=== PATIENT | female | born 1945 | race Caucasian/White ===

== ENCOUNTER 2016-06-21 08:00 | Outpatient (CLI) | payer MEDICARE, OTHER | END 2016-06-21 08:01 | disposition home or self-care (01) | DX: Z79.899 Other long term (current) drug therapy (principal); N95.1 Menopausal and female climacteric states; E55.9 Vitamin D deficiency, unspecified; I31.9 Disease of pericardium, unspecified ==

== ENCOUNTER 2016-07-24 09:18 | Outpatient (CLI) | payer MEDICARE, OTHER | END 2016-07-24 09:19 | disposition home or self-care (01) | DX: K86.2 Cyst of pancreas (principal) ==

== ENCOUNTER 2016-07-27 08:17 | Outpatient (CLI) | payer MEDICARE, OTHER ==
[2016-07-27] MEDS ORDERED: IOPAMIDOL-300 100 ML VIAL IVP ONE (09:58)
== END 2016-07-27 08:18 | disposition home or self-care (01) ==
DX: K86.2 Cyst of pancreas (principal)
CPT/HCPCS: 74170; Q9967

== ENCOUNTER 2016-09-17 11:51 | Outpatient (CLI) | payer MEDICARE, OTHER | END 2016-09-17 11:52 | disposition home or self-care (01) | DX: S69.92XA Unspecified injury of left wrist, hand and finger(s), initial encounter (principal) ==

== ENCOUNTER 2017-07-26 11:37 | Outpatient (CLI) | payer MEDICARE, OTHER ==
[2017-07-26 12:10] LABS: BASOPHILS # (AUTO) 0.1 10^3/uL (0.0-0.1); BASOPHILS % (AUTO) 1.2 %; EOSINOPHILS # (AUTO) 0.1 10^3/uL (0.0-0.7); EOSINOPHILS % (AUTO) 2.1 %; HGB - HEMOGLOBIN 13.8 g/dL (12.0-16.0); LYMPHOCYTES # (AUTO) 1.4 10^3/uL (1.5-3.5); LYMPHOCYTES % (AUTO) 21.2 %; MEAN CORPUSCULAR HEMOGLOBIN 30.1 pg (27.0-31.0); MEAN CORPUSCULAR HGB CONC 32.8 g/dL (32.0-36.0); MEAN CORPUSCULAR VOLUME 91.7 fL (81.0-99.0); MEAN PLATELET VOLUME 8.9 fL (7.9-10.8); MONOCYTES # (AUTO) 0.5 10^3/uL (0.0-1.0); MONOCYTES % (AUTO) 6.8 %; NEUTROPHILS # (AUTO) 4.6 10^3/uL (1.5-6.6); NEUTROPHILS % (AUTO) 68.7 %; PLT - PLATELET COUNT 206 10^3/uL (130-450); RED BLOOD COUNT 4.58 10^6/uL (4.20-5.40); RED CELL DISTRIBUTION WIDTH 13.2 % (12.0-15.0); WHITE BLOOD COUNT 6.7 x10^3/uL (4.8-10.8)
[2017-07-26 12:34] LABS: ALBUMIN 3.9 g/dL (3.2-5.5); ALBUMIN/GLOBULIN RATIO 1.4 (1.0-2.2); ALKALINE PHOSPHATASE 87 IU/L (42-121); ALT ALANINE AMINOTRANSFERASE 22 IU/L (10-60); AST ASPARTATE AMINOTRANSFERASE 25 IU/L (10-42); BILIRUBIN,TOTAL 0.7 mg/dL (0.2-1.0); BUN - BLOOD UREA NITROGEN 21 mg/dL (6-20); CARBON DIOXIDE - CO2 28 mmol/L (21-32); CHLORIDE 101 mmol/L (101-111); CREATININE 0.9 mg/dL (0.4-1.0); GFR - MDRD 61 (>89); GLUCOSE 92 mg/dL (70-100); LIPASE 12 U/L (22-51); SODIUM 136 mmol/L (135-145); TOTAL PROTEIN 6.6 g/dL (6.7-8.2)
[2017-07-26 12:51] LABS: CRP - C-REACTIVE PROTEIN < 1.0 mg/dL (0-1.0)
== END 2017-07-26 11:38 | disposition home or self-care (01) ==
LOC: LAB 11:37
PROVIDERS: ATTEND Physician Assistant Medical
DX: E55.9 Vitamin D deficiency, unspecified (principal); R19.7 Diarrhea, unspecified; Z79.899 Other long term (current) drug therapy
CPT/HCPCS: 36415; 80053; 82306; 83690; 85025; 85651; 86140

== ENCOUNTER 2017-09-04 11:02 | Day surgery (SDC) | payer MEDICARE, OTHER ==
[~2017-09-04 11:02] MED LIST: LACTATED RINGERS 1,000 ML IV ONE
[2017-09-04] MEDS ORDERED: MIDAZOLAM 2 MG/2 ML VIAL IVP ONE (12:05)
[2017-09-04] MEDS ORDERED: fentaNYL 100 MCG/2 ML VIAL IVP ONE (12:05)
[2017-09-04 13:11] VITALS: BP 99/56
== END 2017-09-04 11:03 | disposition home or self-care (01) ==
LOC: SDS 11:02
PROVIDERS: ATTEND Internal Medicine
PROC: 0DJD8ZZ Inspection of Lower Intestinal Tract, Via Natural or Artificial Opening Endoscopic (ICD-10-PCS; principal; 2017-09-04 12:00)
DX: Z12.11 Encounter for screening for malignant neoplasm of colon (principal); K57.30 Diverticulosis of large intestine without perforation or abscess without bleeding; K64.8 Other hemorrhoids
CPT/HCPCS: G0121; J7120

== ENCOUNTER 2018-02-04 12:07 | Outpatient (CLI) | payer MEDICARE, OTHER ==
[2018-02-04 12:47] LABS: BASOPHILS # (AUTO) 0.1 10^3/uL (0.0-0.1); BASOPHILS % (AUTO) 1.1 %; EOSINOPHILS # (AUTO) 0.2 10^3/uL (0.0-0.7); EOSINOPHILS % (AUTO) 3.1 %; HGB - HEMOGLOBIN 13.8 g/dL (12.0-16.0); LYMPHOCYTES # (AUTO) 1.8 10^3/uL (1.5-3.5); LYMPHOCYTES % (AUTO) 23.5 %; MEAN CORPUSCULAR HEMOGLOBIN 31.6 pg (27.0-31.0); MEAN CORPUSCULAR HGB CONC 33.8 g/dL (32.0-36.0); MEAN CORPUSCULAR VOLUME 93.5 fL (81.0-99.0); MEAN PLATELET VOLUME 8.7 fL (7.9-10.8); MONOCYTES # (AUTO) 0.6 10^3/uL (0.0-1.0); NEUTROPHILS # (AUTO) 4.9 10^3/uL (1.5-6.6); NEUTROPHILS % (AUTO) 64.3 %; PLT - PLATELET COUNT 244 10^3/uL (130-450); RED BLOOD COUNT 4.37 10^6/uL (4.20-5.40); RED CELL DISTRIBUTION WIDTH 13.5 % (12.0-15.0); WHITE BLOOD COUNT 7.7 x10^3/uL (4.8-10.8)
[2018-02-04 13:04] LABS: ALBUMIN 4.2 g/dL (3.2-5.5); ALBUMIN/GLOBULIN RATIO 1.6 (1.0-2.2); ALKALINE PHOSPHATASE 94 IU/L (42-121); ALT ALANINE AMINOTRANSFERASE 30 IU/L (10-60); AST ASPARTATE AMINOTRANSFERASE 29 IU/L (10-42); BILIRUBIN,TOTAL 0.5 mg/dL (0.2-1.0); BUN - BLOOD UREA NITROGEN 21 mg/dL (6-20); CALCIUM 9.2 mg/dL (8.5-10.3); CARBON DIOXIDE - CO2 30 mmol/L (21-32); CHLORIDE 102 mmol/L (101-111); CHOL/HDL RATIO 2.5 (<4.4); CHOLESTEROL 189 mg/dL; CREATININE 0.8 mg/dL (0.4-1.0); GFR - MDRD 70 (>89); GLUCOSE 96 mg/dL (70-100); HDL CHOLESTEROL 76 mg/dL; LDL CHOLESTEROL,CALCULATED 104 mg/dL; LDL/HDL RATIO 1.4 (<4.4); SODIUM 139 mmol/L (135-145); TOTAL PROTEIN 6.9 g/dL (6.7-8.2); VLDL CHOLESTEROL 9 mg/dL
[2018-02-04 13:10] LABS: HB2 TOTAL 15.2 g/dL; HEMOGLOBIN A1C 0.48 g/dL
[2018-02-04 13:47] LABS: BILIRUBIN,URINE NEGATIVE (NEGATIVE); GLUCOSE, URINE (UA) NEGATIVE (NEGATIVE); KETONES,URINE (UA) NEGATIVE (NEGATIVE); LEUKOCYTE ESTERASE, URINE NEGATIVE (NEGATIVE); NITRITE,URINE NEGATIVE (NEGATIVE); OCCULT BLOOD,URINE NEGATIVE (NEGATIVE); PH,URINE 5.5 PH (5.0-7.5); PROTEIN,URINE NEGATIVE (NEGATIVE); UROBILINOGEN,URINE 0.2 (NORMAL) E.U./dL (NORMAL)
[2018-02-04 14:37] LABS: CLARITY,URINE CLEAR (CLEAR)
[2018-02-04 14:50] LABS: BACTERIA,URINE Rare /HPF (None Seen); RBC,URINE 0-5 /HPF (0-5); SQUAMOUS EPITHELIAL CELL,UR FEW Squamous (<= Few)
== END 2018-02-04 12:08 | disposition home or self-care (01) ==
LOC: LAB 12:07
PROVIDERS: ATTEND Physician Assistant Medical
DX: Z01.812 Encounter for preprocedural laboratory examination (principal); Z79.899 Other long term (current) drug therapy; E03.9 Hypothyroidism, unspecified; E55.9 Vitamin D deficiency, unspecified
CPT/HCPCS: 36415; 80053; 80061; 81001; 83036; 83721; 84443; 85025; 87086

== ENCOUNTER 2018-03-04 09:29 | Outpatient (CLI) | payer MEDICARE, OTHER ==
--- NOTE | 2018-03-05 11:00 | DEXA Report ---
REVISED: THIS REPORT WAS ORIGINALLY SIGNED ON 03/05/2018 @ 1101. REPORT MOVED TO CORRECT ACCOUNT ON 03/11/2018. Reason: POST MENOPAUSAL Procedure Date: 03/04/2018 Accession Number: [id number] / [id number] Procedure: DEX - Dexa Forearm CPT Code: FULL RESULT: EXAM: Dexa Spine and/or Hip, Dexa Forearm DATE: 03/04/2018 10:45 AM CLINICAL HISTORY: POSTMENOPAUSAL TECHNIQUE: Dual energy x-ray absorptiometry (DXA) was performed on a [employer] System. Regions measured are the AP Spine, femoral neck, and if needed forearm. COMPARISON: 01/04/2016 In accordance with the International Society for Clinical Densitometry (ISCD) guidelines, data from previous exams may be reanalyzed using current recommendations and techniques. This is done to allow a more accurate basis for comparison with the current study. FINDINGS: The data for the hip is as follows: BMD (g/cm/cm) T-SCORE Z-SCORE REGION Neck 0.888 -1.1 0.8 TOTAL 0.817 -1.5 0.2 NOTE: The femoral neck or total proximal femur, whichever is lowest, is used for classification. The data for the Left forearm is as follows: BMD (g/cm/cm) T-SCORE Z-SCORE REGION 06/05 0.779 -1.1 1.0 NOTE: The 33% radius of the nondominant forearm is used for classification. DXA RESULTS SUMMARY: Hip SCAN DATE [age]GE BMD CHANGE VS CHANGE VS PREVIOUS PREVIOUS % [birth year]04[birth year]2018 [age] 0.817 -0.031 -3.7 01/04/2016 [age] 0[age]848 * Denotes significant change at the 95% confidence level. Denotes dissimilar scan types or analysis methods. DXA RESULTS SUMMARY: Forearm SCAN DATE [age]GE BMD CHANGE VS CHANGE VS PREVIOUS PREVIOUS % [birth year]04[birth year]2018 [age] 0.779 -0.052 -6.3 01/04/2016 [age] 0.831 * Denotes significant change at the 95% confidence level. Denotes dissimilar scan types or analysis methods. IMPRESSION: THE WHO CLASSIFICATION BASED ON THE INTERNATIONAL REFERENCE STANDARD IS OSTEOPENIA. THE FRACTURE RISK IS INCREASED. RECOMMENDATION: Patients with diagnosis of osteoporosis or osteopenia should have regular bone mineral density assessment. For those eligible for Medicare, routine testing is allowed once every 2 years. Testing frequency can be increased for patients who have rapidly progressing disease or for those who are receiving medical therapy to restore bone mass. COMMENT: World Health Organization (WHO) definitions for osteoporosis and osteopenia: NORMAL BMD: T-score at -1.0 or higher, fracture risk is low OSTEOPENIA BMD: T-score between -1.0 and -2.5, fracture risk is increased. OSTEOPOROSIS BMD: T-score at -2.5 or lower, fracture risk is high. National Osteoporosis Foundation recommends: 1. Obtain adequate dietary calcium (at least 1200 mg per day) and vitamin D (400-800 international units per day). 2. Participate, as appropriate, in regular weightbearing and muscle-strengthening exercise. 3. Avoid tobacco use and reduce alcohol and caffeine intake. 4. For more detailed information see the website at www.NOF.org. MTDD
--- NOTE | 2018-03-05 11:00 | DEXA Report ---
Reason: POSTMENOPAUSAL Procedure Date: 03/04/2018 Accession Number: [id number] / [id number] Procedure: DEX - Dexa Spine and/or Hip CPT Code: FULL RESULT: EXAM: Dexa Spine and/or Hip, Dexa Forearm DATE: 03/04/2018 10:45 AM CLINICAL HISTORY: POSTMENOPAUSAL TECHNIQUE: Dual energy x-ray absorptiometry (DXA) was performed on a [employer] System. Regions measured are the AP Spine, femoral neck, and if needed forearm. COMPARISON: 01/04/2016 In accordance with the International Society for Clinical Densitometry (ISCD) guidelines, data from previous exams may be reanalyzed using current recommendations and techniques. This is done to allow a more accurate basis for comparison with the current study. FINDINGS: The data for the hip is as follows: BMD (g/cm/cm) T-SCORE Z-SCORE REGION Neck 0.888 -1.1 0.8 TOTAL 0.817 -1.5 0.2 NOTE: The femoral neck or total proximal femur, whichever is lowest, is used for classification. The data for the Left forearm is as follows: BMD (g/cm/cm) T-SCORE Z-SCORE REGION 1/3 0.779 -1.1 1.0 NOTE: The 33% radius of the nondominant forearm is used for classification. DXA RESULTS SUMMARY: Hip SCAN DATE AGE BMD CHANGE VS CHANGE VS PREVIOUS PREVIOUS % [birth year]04[birth year]2018 [age] 0.817 -0.031 -3.7 01/04/2016 70.7 0.848 * Denotes significant change at the 95% confidence level. Denotes dissimilar scan types or analysis methods. DXA RESULTS SUMMARY: Forearm SCAN DATE AGE BMD CHANGE VS CHANGE VS PREVIOUS PREVIOUS % 03/04/2018 [age] 0.779 -0.052 -6.3 01/04/2016 70.7 0.831 * Denotes significant change at the 95% confidence level. Denotes dissimilar scan types or analysis methods. IMPRESSION: THE WHO CLASSIFICATION BASED ON THE INTERNATIONAL REFERENCE STANDARD IS OSTEOPENIA. THE FRACTURE RISK IS INCREASED. RECOMMENDATION: Patients with diagnosis of osteoporosis or osteopenia should have regular bone mineral density assessment. For those eligible for Medicare, routine testing is allowed once every 2 years. Testing frequency can be increased for patients who have rapidly progressing disease or for those who are receiving medical therapy to restore bone mass. COMMENT: World Health Organization (WHO) definitions for osteoporosis and osteopenia: NORMAL BMD: T-score at -1.0 or higher, fracture risk is low OSTEOPENIA BMD: T-score between -1.0 and -2.5, fracture risk is increased. OSTEOPOROSIS BMD: T-score at -2.5 or lower, fracture risk is high. National Osteoporosis Foundation recommends: 1. Obtain adequate dietary calcium (at least 1200 mg per day) and vitamin D (400-800 international units per day). 2. Participate, as appropriate, in regular weightbearing and muscle-strengthening exercise. 3. Avoid tobacco use and reduce alcohol and caffeine intake. 4. For more detailed information see the website at www.NOF.org.
== END 2018-03-04 09:30 | disposition home or self-care (01) ==
LOC: DI 09:29
PROVIDERS: ATTEND Physician Assistant Medical
DX: M85.89 Other specified disorders of bone density and structure, multiple sites (principal); Z78.0 Asymptomatic menopausal state
CPT/HCPCS: 77080; 77081

== ENCOUNTER 2018-03-04 09:29 | Outpatient (CLI) | payer MEDICARE, OTHER ==
--- NOTE | 2018-03-05 14:28 | Mammography Report ---
Reason: SCREENING MAMMO Procedure Date: 03/04/2018 Accession Number: [id number] / [id number] Procedure: YUNIOR - Screening Mammo Dig Bilat CPT Code: FULL RESULT: EXAM: Screening Mammo Dig Bilat DATE: 03/04/2018 11:04 AM CLINICAL HISTORY: 72-year-old female presents for screening mammogram. TECHNIQUE: Bilateral CC and MLO views were obtained. COMPARISON: 01/04/2016, 08/24/2014, 05/08/2013, 01/22/2012. FINDINGS: The breasts demonstrate scattered fibroglandular densities bilaterally. No suspicious masses, clustered microcalcifications, or regions of architectural distortion are identified. IMPRESSION: Negative examination RECOMMENDATION: Routine annual screening unless otherwise clinically indicated. BIRADS CATEGORY 1: Negative STANDARD QUALIFYING STATEMENTS: 1. This examination was not reviewed with the aid of Computer-Aided Detection (CAD). 2. A negative or benign imaging report should not delay biopsy if clinically suspicious findings are present. Consider surgical consultation if warrented. More than 5% of cancers are not identified by imaging. 3. Dense breasts may obscure an underlying neoplasm. 4. This examination was reviewed without the aid of 3D breast imaging (tomosynthesis).
== END 2018-03-04 09:30 | disposition home or self-care (01) ==
LOC: DI 09:29
PROVIDERS: ATTEND Physician Assistant Medical
DX: Z12.31 Encounter for screening mammogram for malignant neoplasm of breast (principal)
CPT/HCPCS: 77067; 77081

== ENCOUNTER 2018-03-13 12:05 | Outpatient (CLI) | payer MEDICARE, OTHER ==
--- NOTE | 2018-03-13 15:30 | Ultrasound Report ---
Reason: EPISODIC SEVERE RUQ EPIGASTRIC PAIN Procedure Date: 03/13/2018 Accession Number: [id number] / [id number] Procedure: US - Abdomen Limited CPT Code: FULL RESULT: EXAM: ABDOMEN ULTRASOUND LIMITED, RUQ EXAM DATE: 03/13/2018 12:17 PM. CLINICAL HISTORY: Episodic severe right upper quadrant epigastric pain. COMPARISON: None. TECHNIQUE: Real-time scanning was performed with static images obtained. FINDINGS: Liver: Normal in size and echotexture. Right lobe measures up to 14 cm. Main portal vein flow: Hepatopetal. Gallbladder: Normal. No stones, wall thickening, or sonographic Bullard's sign. Biliary System: CBD measures 5 mm. No intrahepatic or extrahepatic ductal dilatation. Other: Right kidney measures up to 10.7 cm and demonstrate preserved parenchymal flow with the inferior pole simple cyst measuring up to 6.6 cm which requires no further follow-up. No hydronephrosis. IMPRESSION: Normal. No cholelithiasis or cholecystitis. RADIA
== END 2018-03-13 12:06 | disposition home or self-care (01) ==
LOC: DI 12:05
PROVIDERS: ATTEND Internal Medicine
DX: R10.11 Right upper quadrant pain (principal)
CPT/HCPCS: 76705

== ENCOUNTER 2018-07-01 08:32 | Outpatient (CLI) | payer MEDICARE, OTHER ==
[2018-07-01 10:23] LABS: THYROID STIMULATING HORMONE 1.46 uIU/mL (0.34-5.60)
[2018-07-01 10:24] LABS: FREE T4 (FREE THYROXINE) 0.9 ng/dL (0.58-1.64)
== END 2018-07-01 08:33 | disposition home or self-care (01) ==
LOC: LAB 08:32
PROVIDERS: ATTEND Physician Assistant Medical
DX: E03.9 Hypothyroidism, unspecified (principal); Z79.899 Other long term (current) drug therapy; Z79.890 Hormone replacement therapy
CPT/HCPCS: 36415; 82670; 84439; 84443; 84481

== ENCOUNTER 2019-03-25 12:49 | Outpatient (CLI) | payer MEDICARE, OTHER ==
[2019-03-25 13:09] LABS: BASOPHILS # (AUTO) 0.1 10^3/uL (0.0-0.1); BASOPHILS % (AUTO) 1.1 %; EOSINOPHILS # (AUTO) 0.1 10^3/uL (0.0-0.7); EOSINOPHILS % (AUTO) 2.5 %; HGB - HEMOGLOBIN 14.4 g/dL (12.0-16.0); LYMPHOCYTES # (AUTO) 1.3 10^3/uL (1.5-3.5); LYMPHOCYTES % (AUTO) 24.4 %; MEAN CORPUSCULAR HEMOGLOBIN 30.6 pg (27.0-31.0); MEAN CORPUSCULAR HGB CONC 32.3 g/dL (32.0-36.0); MEAN CORPUSCULAR VOLUME 94.7 fL (81.0-99.0); MEAN PLATELET VOLUME 10.3 fL (7.9-10.8); MONOCYTES # (AUTO) 0.5 10^3/uL (0.0-1.0); MONOCYTES % (AUTO) 9.7 %; NEUTROPHILS # (AUTO) 3.3 10^3/uL (1.5-6.6); NEUTROPHILS % (AUTO) 62.1 %; PLT - PLATELET COUNT 255 10^3/uL (130-450); RED BLOOD COUNT 4.71 10^6/uL (4.20-5.40); RED CELL DISTRIBUTION WIDTH 13.7 % (12.0-15.0); WHITE BLOOD COUNT 5.3 x10^3/uL (4.8-10.8)
[2019-03-25 13:34] LABS: ALBUMIN 4.3 g/dL (3.2-5.5); ALBUMIN/GLOBULIN RATIO 1.5 (1.0-2.2); ALKALINE PHOSPHATASE 88 IU/L (42-121); ALT ALANINE AMINOTRANSFERASE 28 IU/L (10-60); AST ASPARTATE AMINOTRANSFERASE 25 IU/L (10-42); BILIRUBIN,TOTAL 0.8 mg/dL (0.2-1.0); BUN - BLOOD UREA NITROGEN 19 mg/dL (6-20); CALCIUM 9.4 mg/dL (8.5-10.3); CARBON DIOXIDE - CO2 29 mmol/L (21-32); CHLORIDE 102 mmol/L (101-111); CHOL/HDL RATIO 2.8 (<4.4); CHOLESTEROL 195 mg/dL; CREATININE 0.9 mg/dL (0.4-1.0); GFR - MDRD 61 (>89); GLUCOSE 95 mg/dL (70-100); HDL CHOLESTEROL 70 mg/dL; LDL CHOLESTEROL,CALCULATED 115 mg/dL; LDL/HDL RATIO 1.6 (<4.4); SODIUM 140 mmol/L (135-145); TOTAL PROTEIN 7.1 g/dL (6.7-8.2); VLDL CHOLESTEROL 10 mg/dL
[2019-03-25 14:05] LABS: THYROID STIMULATING HORMONE 0.59 uIU/mL (0.34-5.60)
[2019-03-25 14:07] LABS: FREE T4 (FREE THYROXINE) 0.89 ng/dL (0.58-1.64)
== END 2019-03-25 12:50 | disposition home or self-care (01) ==
LOC: LAB 12:49
PROVIDERS: ATTEND Family Medicine
DX: M85.80 Other specified disorders of bone density and structure, unspecified site (principal); Z79.890 Hormone replacement therapy; M15.9 Polyosteoarthritis, unspecified; E03.9 Hypothyroidism, unspecified; E55.9 Vitamin D deficiency, unspecified; K21.9 Gastro-esophageal reflux disease without esophagitis
CPT/HCPCS: 36415; 80053; 80061; 82306; 83721; 84439; 84443; 84481; 85025

== ENCOUNTER 2020-03-24 17:18 | Outpatient (CLI) | payer MEDICARE, OTHER | END 2020-03-24 17:19 | disposition home or self-care (01) | LOC: COV 17:18 | PROVIDERS: ATTEND Family Medicine | DX: R05 Cough (principal); M79.10 Myalgia, unspecified site; R53.83 Other fatigue; R19.7 Diarrhea, unspecified; R09.81 Nasal congestion; R11.2 Nausea with vomiting, unspecified; Z20.828 Contact with and (suspected) exposure to other viral communicable diseases ==

== ENCOUNTER 2020-03-31 12:56 | Outpatient (CLI) | payer MEDICARE, OTHER ==
--- NOTE | 2020-03-31 16:53 | MRI Report ---
PROCEDURE: Knee RT W/O INDICATIONS: RT KNEE PAIN TECHNIQUE: Noncontrast sagittal PD fast spin echo and T2 fast spin echo with fat saturation, sagittal 3-D gradie nt sequence with fat saturation; coronal T1 spin echo and PD fast spin echo with fat saturation, and axial PD fast spin echo with fat saturation through the knee. COMPARISON: None. FINDINGS: Image quality: Excellent. Menisci: Oblique tear involving posterior horn of medial meniscus is seen extending to inferior artic ulating surface. There is no focal lateral meniscal tear. The meniscal root ligaments appear intact. Cruciate ligaments: The anterior and posterior cruciate ligaments appear intact. Medial structures: Low to moderate grade MCL sprain is seen. The posterior oblique ligament, semimemb ranosus tendon insertions, and oblique popliteal ligament, and meniscocapsular junction appear intact . Visualized portions of the pes anserinus tendons appear normal. No abnormal bursal fluid. Lateral structures: The lateral collateral ligament, long and short heads of the biceps femoris tend on appear intact. The popliteus tendon appears normal; the popliteofibular ligament appears intact. The posterosuperior and anteroinferior popliteomeniscal fascicles appear intact. The arcuate and fa bellofibular ligaments appear intact, around the lateral inferior geniculate artery. Iliotibial band appears normal. Anterior structures: The quadriceps and patellar tendons appear intact. Patellar alignment is neftaly l. No femoral trochlear dysplasia or ventral trochlear prominence. No edema in the infrapatellar fa t pad. Bones and cartilage: No bone marrow contusions or fractures. Mild tricompartmental osteoarthritis an d low-grade chondromalacia is seen more prominent in medial femoral tibial compartment. Joint space: There is small amount of joint fluid. A popliteal cyst is seen measures up to 2.3 x 1.9 x 5.4 cm in size. Normal appearing synovial plicae are incidentally noted. IMPRESSION: 1. Oblique tear involving posterior horn of medial meniscus extending to inferior articulating surfac e. No focal lateral meniscal tear. 2. Low to moderate grade MCL sprain. Cruciate ligaments are intact. 3. Mild tricompartmental osteoarthritis and low-grade chondromalacia more prominent in medial femoral tibial compartment. 4. Small amount of joint effusion. Popliteal cyst as above. Reviewed by: Alex Sierra MD on 03/31/2020 4:52 PM PDT Approved by: Alex Sierra MD on 03/31/2020 4:52 PM PDT Station ID: [id number]
== END 2020-03-31 12:57 | disposition home or self-care (01) ==
LOC: DI 12:56
PROVIDERS: ATTEND Orthopaedic Surgery
DX: S83.241A Other tear of medial meniscus, current injury, right knee, initial encounter (principal); S83.411A Sprain of medial collateral ligament of right knee, initial encounter; M17.11 Unilateral primary osteoarthritis, right knee; M94.261 Chondromalacia, right knee; M71.21 Synovial cyst of popliteal space [Baker], right knee; M47.816 Spondylosis without myelopathy or radiculopathy, lumbar region
CPT/HCPCS: 72148

== ENCOUNTER 2020-03-31 13:28 | Outpatient (CLI) | payer MEDICARE, OTHER ==
--- NOTE | 2020-04-01 05:20 | MRI Report ---
PROCEDURE: Lumbar Spine W/O INDICATIONS: LBP, RLE PAIN TECHNIQUE: Noncontrast sagittal T1 spin echo and T2 fast echo, sagittal STIR, axial T1 and T2 fast spin echo thr ough the lumbar spine. In cases with scoliosis, additional coronal T2 fast spin echo may be performe d. COMPARISON: 08/15/2012 FINDINGS: Image quality: Motion artifact is noted. There is artifact associated with the metallic hardware. Alignment and Curvature: There is moderate dextroconvex lumbar scoliosis. Bone Marrow: Marrow is of normal overall signal. No acute vertebral body compression fractures. Spinal Cord: Conus medullaris terminates at the L1-L2 level. Visualized cord demonstrates normal si gnal and size. Paraspinous Soft Tissues: No paravertebral masses. At the inferior pole of the right kidney, there is partial visualization of a cyst that measures at least 6 cm. Postoperative changes are seen, with pedicle screws spanning from L2 through L5. Vertical fixation ro ds are seen. Disc spacers are seen at L2-L3, L3-L4, and L4-L5. T12-L1: Normal in appearance. L1-L2: At least moderate loss of disc height and disc signal can be seen. Remote Schmorl's nodes c an be seen at the inferior endplate of L1 and the superior endplate of L2. Mild disc bulge is seen. Moderate facet hypertrophy is seen, left worse than right. There is moderate left-sided and mild rig ht-sided neuroforaminal narrowing seen. Mild central canal narrowing is seen. These degenerative c hanges have progressed when compared to the prior examination. L2-L3: Postoperative changes are seen at this level. No significant neural foraminal or central ca nal narrowing can be seen. This level is clearly improved compared to the preoperative MRI. L3-L4: There are postoperative changes seen at this level. Mild disc bulge is seen. There is mode rate right-sided and moderate to severe left sided facet hypertrophy seen. There is minimal to mild b ilateral neuroforaminal narrowing seen. Moderate central canal narrowing is seen. The degenerative changes at this level are improved compared to 2013. L4-L5: Postoperative changes can be seen at this level. Mild disc bulge is seen. Moderate to prom inent facet hypertrophy is seen, right worse than left. There is mild to moderate right-sided and no left-sided neuroforaminal narrowing seen. Mild to moderate central canal narrowing is seen. The degre es of narrowing at this level are slightly improved compared to 2013. L5-S1: Moderate loss of disc height and disc signal can be seen on the right side. Moderate disc bu lge is seen, which is eccentric to the right. There is at least moderate facet hypertrophy seen. Ther e is moderate to severe right-sided and no left-sided neuroforaminal narrowing seen. No central canal narrowing is seen. This level is similar to 2013. IMPRESSION: Lower lumbar spine postoperative changes are seen. There is overall improvement in the degrees of narrowing throughout the postoperative region. Progression of degenerative change noted at L1-L2 compared to 2013. Reviewed by: Manohar Charles MD on 03/31/2020 6:02 PM RAMON Approved by: Manohar Charles MD on 03/31/2020 6:02 PM RAMON Station ID: [id number]
== END 2020-03-31 13:29 | disposition home or self-care (01) ==
LOC: DI 13:28
PROVIDERS: ATTEND Orthopaedic Surgery
DX: M47.816 Spondylosis without myelopathy or radiculopathy, lumbar region (principal)
CPT/HCPCS: 72148

== ENCOUNTER 2020-06-23 08:00 | Outpatient (CLI) | payer MEDICARE, OTHER ==
[2020-06-23 09:41] LABS: BASOPHILS # (AUTO) 0.1 10^3/uL (0.0-0.1); BASOPHILS % (AUTO) 1.6 %; EOSINOPHILS # (AUTO) 0.1 10^3/uL (0.0-0.7); EOSINOPHILS % (AUTO) 2.9 %; HGB - HEMOGLOBIN 14.5 g/dL (12.0-16.0); LYMPHOCYTES # (AUTO) 1.6 10^3/uL (1.5-3.5); LYMPHOCYTES % (AUTO) 33.3 %; MEAN CORPUSCULAR HEMOGLOBIN 30.5 pg (27.0-31.0); MEAN CORPUSCULAR HGB CONC 31.8 g/dL (32.0-36.0); MEAN CORPUSCULAR VOLUME 95.8 fL (81.0-99.0); MEAN PLATELET VOLUME 10.6 fL (7.9-10.8); MONOCYTES # (AUTO) 0.5 10^3/uL (0.0-1.0); MONOCYTES % (AUTO) 10.3 %; NEUTROPHILS # (AUTO) 2.5 10^3/uL (1.5-6.6); NEUTROPHILS % (AUTO) 51.7 %; PLT - PLATELET COUNT 219 10^3/uL (130-450); RED BLOOD COUNT 4.76 10^6/uL (4.20-5.40); RED CELL DISTRIBUTION WIDTH 13.2 % (12.0-15.0); WHITE BLOOD COUNT 4.9 x10^3/uL (4.8-10.8)
[2020-06-23 09:59] LABS: ALBUMIN 4.2 g/dL (3.2-5.5); ALBUMIN/GLOBULIN RATIO 1.6 (1.0-2.2); BILIRUBIN,TOTAL 0.4 mg/dL (0.2-1.0); CALCIUM 9.4 mg/dL (8.5-10.3); CREATININE 0.9 mg/dL (0.4-1.0); TOTAL PROTEIN 6.8 g/dL (6.7-8.2)
[2020-06-23 10:17] LABS: THYROID STIMULATING HORMONE 0.97 uIU/mL (0.34-5.60)
[2020-06-23 10:18] LABS: FREE T3 2.87 pg/mL (2.5-3.9)
[2020-06-23 10:19] LABS: FREE T4 (FREE THYROXINE) 0.89 ng/dL (0.58-1.64)
== END 2020-06-23 23:59 | disposition home or self-care (01) ==
LOC: LAB 08:00
PROVIDERS: ATTEND Nurse Practitioner
DX: N18.2 Chronic kidney disease, stage 2 (mild) (principal); E03.9 Hypothyroidism, unspecified; E55.9 Vitamin D deficiency, unspecified; K21.9 Gastro-esophageal reflux disease without esophagitis; Z79.899 Other long term (current) drug therapy
CPT/HCPCS: 36415; 80053; 84439; 84443; 84481; 85025

== ENCOUNTER 2020-08-17 12:59 | Outpatient (CLI) | payer MEDICARE, OTHER ==
--- NOTE | 2020-08-19 05:11 | DEXA Report ---
PROCEDURE: Dexa Spine and/or Hip INDICATIONS: MENOPAUSE TECHNIQUE: Dual energy x-ray absorptiometry (DXA) was performed on a [employer] System. Regions measur ed are the AP Spine, femoral neck, and if needed forearm. COMPARISON: 03/04/2018 and 01/04/2016. FINDINGS: Left Hip: Bone Mineral Density 0.812 g/cm/cm,T score -1.5, osteopenia Left Femoral Neck: Bone Mineral Density 0.875 g/cm/cm, T score -1.2, osteopenia Left forearm: Bone Mineral Density 0.694 g/cm/cm, T score -2.1, osteopenia (T score greater or equal to -1.0: NORMAL) (T score from -1.1 to -2.4: OSTEOPENIA) (T score less than or equal to -2.5 to: OSTEOPOROSIS) Impression: Osteopenia. Bone mineral density has decreased 0.6% in the interval since prior exam obta ined 03/04/2018. Patients with diagnosis of osteoporosis or osteopenia should have regular bone mineral density assess ment. For those eligible for Medicare, routine testing is allowed once every 2 years. Testing frequ ency can be increased for patients who have rapidly progressing disease or for those who are receivin g medical therapy to restore bone mass. Reviewed by: Rossy Moore MD, PhD on 08/17/2020 5:03 PM PDT Approved by: Rossy Moore MD, PhD on 08/17/2020 5:03 PM PDT Station ID: [id number]
== END 2020-08-17 13:00 | disposition home or self-care (01) ==
LOC: DI 12:59
PROVIDERS: ATTEND Nurse Practitioner
DX: M85.89 Other specified disorders of bone density and structure, multiple sites (principal)

== ENCOUNTER 2020-08-17 13:01 | Outpatient (CLI) | payer MEDICARE, OTHER ==
--- NOTE | 2020-08-18 14:14 | Mammography Report ---
BILATERAL DIGITAL SCREENING MAMMOGRAM 3D/2D: 08/17/2020 CLINICAL: Routine screening. Comparison is made to exams dated: 03/04/2018 mammogram, 01/04/2016 mammogram, 08/24/2014 mammogram, and 05/08/2013 mammogram - [facility]. There are scattered fibroglandular elements in both breasts. No significant masses, calcifications, or other findings are seen in either breast. There has been no significant interval change. IMPRESSION: NEGATIVE There is no mammographic evidence of malignancy. A 1 year screening mammogram is recommended. This exam was interpreted at Station ID: [id number]. NOTE: For mammograms, a report in lay terms will be sent to the patient. Approximately 15% of breast malignancies will not be visualized mammographically. In the management of a palpable breast mass, a negative mammogram must not discourage biopsy of a clinically suspicious lesion. Electronically Signed By: Devora campbell/penrad:08/17/2020 15:50:16 ACR BI-RADS Category 1: Negative 3341F PARENCHYMAL PATTERN: (A) - The breast(s) demonstrate(s) scattered fibroglandular densities. BI-RADS CATEGORY: (1) - 1 RECOMMENDATION: (ANNUAL) - Recommend routine annual screening mammography. [id number] 1 year screening LATERALITY: (B)
== END 2020-08-17 13:02 | disposition home or self-care (01) ==
LOC: DI 13:01
PROVIDERS: ATTEND Nurse Practitioner
DX: Z12.31 Encounter for screening mammogram for malignant neoplasm of breast (principal)

== ENCOUNTER 2021-06-08 17:08 | Outpatient (CLI) | payer OTHER, MEDICARE ==
--- NOTE | 2021-06-09 09:07 | XRAY Report ---
PROCEDURE: Ribs Bilat w/Chest 4 View INDICATIONS: CHEST WALL PAIN TECHNIQUE: 2 views of the right and left ribs were acquired, along with a single view chest. COMPARISON: None FINDINGS: Surgical changes and devices: None. Bones and chest wall: No fractures or dislocations. Upper lumbar fusion hardware and disc spacer ricardo cement. No suspicious bony lesions. Overlying soft tissues appear unremarkable. Lungs and pleura: No pleural effusions or pneumothorax. Lungs appear hyperinflated with mildly coar se interstitial markings, but otherwise clear. Mediastinum: Mediastinal contours appear normal. Heart size is normal. IMPRESSION: 1. No visible rib fractures. 2. Hyperinflated lungs with changes of emphysema. 3. No radiographic evidence of underlying chest trauma. Reviewed by: Devora Davenport MD on 06/09/2021 9:06 AM PST Approved by: Devora Davenport MD on 06/09/2021 9:06 AM PST Station ID: [id number]
== END 2021-06-08 23:59 | disposition home or self-care (01) ==
LOC: DI.N 17:08
PROVIDERS: ATTEND Family Medicine
DX: R07.89 Other chest pain (principal); J43.9 Emphysema, unspecified

== ENCOUNTER 2022-05-08 14:02 | Outpatient (CLI) | payer MEDICARE, OTHER ==
--- NOTE | 2022-05-08 15:29 | XRAY Report ---
PROCEDURE: Hand 3 View BILAT INDICATIONS: PAIN IN HANDS TECHNIQUE: 3 views of the hand(s) acquired. COMPARISON: None FINDINGS: Bones: No fractures or dislocations. No suspicious bony lesions. Joint space narrowing and periart icular osteophyte formation at the proximal and distal interphalangeal joints of the right third digi t. Joint space narrowing and periarticular osteophyte formation at the radiocarpal joints bilaterally . No evidence of periarticular lucencies to indicate erosions. Soft tissues: No suspicious soft tissue calcifications. IMPRESSION: 1. No evidence of erosive arthropathy. 2. Right third digit osteoarthritis. 3. Radiocarpal joint osteoarthritis bilaterally. 4. No acute fracture. No osseous lesion. If symptoms and/or clinical suspicion for pathology continue , further assessment with repeat plain films, or advanced imaging (e.g., CT, MRI, or bone scan) is re commended for further assessment. Reviewed by: Shaheen Chappell MD on 05/08/2022 3:27 PM PST Approved by: Shaheen Chappell MD on 05/08/2022 3:27 PM PST Station ID: [id number]
--- NOTE | 2022-05-08 15:39 | XRAY Report ---
PROCEDURE: Foot 3 View BILAT INDICATIONS: PAIN IN BOTH FEET TECHNIQUE: 3 views of the foot were acquired. COMPARISON: None FINDINGS: Bones: No fractures or dislocations. No suspicious bony lesions. Joint space narrowing in particul ar osteophyte formation at the talonavicular, naviculocuneiform, and first metatarsophalangeal joints bilaterally, indicating osteoarthritis. No evidence of periarticular erosions to indicate erosive ar thropathy. Soft tissues: No tibiotalar joint effusion. Achilles tendon appears normal. IMPRESSION: 1. Bilateral osteoarthritis. 2. No acute fracture. No osseous lesion. If symptoms and/or clinical suspicion for pathology continue , further assessment with repeat plain films, or advanced imaging (e.g., CT, MRI, or bone scan) is re commended for further assessment. Reviewed by: Shaheen Chappell MD on 05/08/2022 3:38 PM PST Approved by: Shaheen Chappell MD on 05/08/2022 3:38 PM PST Station ID: [id number]
== END 2022-05-08 14:03 | disposition home or self-care (01) ==
LOC: DI 14:02
PROVIDERS: ATTEND Physician Assistant
DX: M19.072 Primary osteoarthritis, left ankle and foot (principal); M19.071 Primary osteoarthritis, right ankle and foot; M19.041 Primary osteoarthritis, right hand; M19.032 Primary osteoarthritis, left wrist; M19.031 Primary osteoarthritis, right wrist

== ENCOUNTER 2022-10-19 10:47 | Outpatient (CLI) | payer MEDICARE, OTHER ==
--- NOTE | 2022-10-19 13:33 | DEXA Report ---
PROCEDURE: Dexa Spine and/or Hip INDICATIONS: POST MENOPAUSAL TECHNIQUE: Dual energy x-ray absorptiometry (DXA) was performed on a [employer] System. Regions measur ed are the AP Spine, femoral neck, and if needed forearm. COMPARISON: 08/17/2020, 03-20 FINDINGS: Lumbar Spine: Not imaged. Left Femoral Neck: Bone Mineral Density 0.857 g/cm/cm, T score -1.3. Osteopenia Left Hip: Bone Mineral Density 0.796 g/cm/cm,T score -1.7. Osteopenia, change from previous -2.0% Left Forearm: Bone Mineral Density 0.710 g/cm/cm, T score -1.9. Osteopenia, change from previous 2.3% (T score greater or equal to -1.0: NORMAL) (T score from -1.1 to -2.4: OSTEOPENIA) (T score less than or equal to -2.5 to: OSTEOPOROSIS) Impression: By WHO criteria, this patient has low bone density (osteopenia). No significant change in bone mineral density compared to the prior study. Patients with diagnosis of osteoporosis or osteopenia should have regular bone mineral density assess ment. For those eligible for Medicare, routine testing is allowed once every 2 years. Testing frequ ency can be increased for patients who have rapidly progressing disease or for those who are receivin g medical therapy to restore bone mass. Reviewed by: Devora Davenport MD on 10/19/2022 1:32 PM PDT Approved by: Devora Davenport MD on 10/19/2022 1:32 PM PDT Station ID: [id number]
== END 2022-10-19 10:48 | disposition home or self-care (01) ==
LOC: DI 10:47
PROVIDERS: ATTEND Physician Assistant
DX: M85.89 Other specified disorders of bone density and structure, multiple sites (principal)

== ENCOUNTER 2023-12-14 04:33 | Emergency (ER) | payer MEDICARE, OTHER ==
--- NOTE | 2023-12-14 04:44 | ED Physician Documentation ---
PD HPI UPPER EXT INJURY - Stated complaint Stated Complaint: HAND WOUND - Chief complaint Chief Complaint: Wound - History obtained from History obtained from: Patient - Additonal information Additional information: HPI from patient. Patient complains of right hand pain, swelling, redness. Approximately 3 weeks ago, the patient sustained a scratch to her right hand from her dog's tooth. She says it was a grazing injury and not an actual bite. She rapidly developed painful swelling and redness at the site of injury and thus went to ED. She was prescribed a one-week course of augmentin. She says there was no incision/drainage performed. She says that the signs and symptoms had almost completely resolved; after being done with the 1-week course of Augmentin, she says the only abnormality at the site of injury was a small, dry scab. The pain, redness, swelling had all resolved. Last night, she noted recurrence of the redness, swelling, and pain at the same site (dorsum of right hand), and over the past several hours the signs and symptoms have rapidly worsened. 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 - Present Medications Home Medications: Ambulatory Orders Medication Instructions Recorded Confirmed Chlorthalidone 25 mg PO ONCE 01/02/16 12/14/23 Lactobacillus Acidophilus 1.5 mg PO DAILY 09/04/17 12/14/23 [Probiotic Acidophilus] Amox/Clav 875/125 [Augmentin 1 tablet PO Q12H 10 Days #20 tablet 12/14/23 875/125 Tab] Thyroid,Pork [Thyroid] 30 mg PO DAILY 12/14/23 12/14/23 - Allergies Allergies/Adverse Reactions: Allergies Allergy/AdvReac Type Severity Reaction Status Date / Time Sulfa (Sulfonamide Allergy Rash Verified 12/14/23 04:41 Antibiotics) - Social History Does the pt smoke?: No Smoking Status: Never smoker Does the pt drink ETOH?: No Does the pt have substance abuse?: No - Immunizations Immunizations are current?: Yes - POLST Patient has POLST: No PD ED PE NORMAL - Vitals Vital signs reviewed: Yes - General General: Alert and oriented X 3, No acute distress, Well developed/nourished PD ED PE EXPANDED - Extremities CONSTANTINE UE/Hands Visual: 1 - rash (confluent erythema with sharp margins), swelling, tenderness (mild ttp) Results - Vitals Vitals: Oxygen O2 Source Room air PD Medical Decision Making - ED course Complexity details: considered differential, d/w patient ED course: swelling, erythema, and tenderness on dorsum of right hand at site of previous contact with her dog's tooth (patient says not actual bite as there was no apparent piercing of the skin). No fluctuance or discharge, and no palpable firm margins to suggest drainable collection (ie abscess). Will placer her back on augmentin (as the one-week course led to near-resolution) but will rx 10 day course this time. Return precautions reviewed. Advised to follow up with PCP within 3-5 days for recheck of the infection Departure - Departure Disposition: 01 Home, Self Care Clinical Impression: Dog bite Qualifiers: Encounter type: initial encounter Qualified Code(s): W54.0XXA - Bitten by dog, initial encounter Condition: Good Instructions: ED Bite Animal General Prescriptions: Amox/Clav 875/125 [Augmentin 875/125 Tab] 1 tablet PO Q12H 10 Days #20 tablet Comments: I have electronically submitted a prescription for a 10-day course of Augmentin to the [facility] pharmacy in [place]. This is the same antibiotic that you were recently on. The reason I am putting you back on the same antibiotic is that you describe near-resolution of your symptoms as a result of the previous course of antibiotic. The most likely explanation for the recurrence of symptoms is that a small amount of bacteria were not killed by the antibiotic and, after several days, they have built back up to cause return of the infection and its symptoms. Hopefully, the longer (10-day) course of this antibiotic will completely eliminate the infection this time. Consider contacting your primary care provider when their office is next open to arrange for a recheck of the wound within the next few days. Discharge Date/Time: 12/14/23 05:15
[2023-12-14 04:50] VITALS: BP 155/62; O2SAT 100
[2023-12-14] MEDS: AMOX/CLAV 875 MG/125 MG TABLET PO STA (05:09)
== END 2023-12-14 05:15 | disposition home or self-care (01) ==
LOC: ED 04:33
DX: M79.641 Pain in right hand (principal); W54.0XXA Bitten by dog, initial encounter; J45.909 Unspecified asthma, uncomplicated; E03.9 Hypothyroidism, unspecified
CPT/HCPCS: 99283; A9270

== ENCOUNTER 2023-12-15 07:45 | Outpatient (CLI) | payer MEDICARE, OTHER ==
--- NOTE | 2023-12-15 21:31 | Ultrasound Report ---
PROCEDURE: Abdomen Limited INDICATIONS: ELEVATED AST AND ALK PHOS TECHNIQUE: Real-time focused scanning was performed of the abdomen, with image documentation. COMPARISONS: CT of abdomen and pelvis dated 07/27/2016. Ultrasound of abdomen dated 03/13/2018. FINDINGS: Liver: Liver is normal in size and heterogeneous in echotexture. Gallbladder: No gallstones, sludge, wall thickening or pericholecystic edema. Biliary ducts: Intrahepatic bile ducts are non-dilated. Extrahepatic bile duct caliber measures 6 m m. Normal is 6-7 mm or less in diameter, or 10 mm or less post-cholecystectomy. Pancreas: Visualized portions of the pancreas are sonographically normal. Right kidney: Normal in size and echotexture. Right kidney measures 10.1 cm long. No hydronephrosis or nephrolithiasis. No solid masses. Simple appearing right renal cyst is again seen measures 3.7 x 3.5 x 5.9 cm in size in lower pole right kidney. No complex renal cystic lesions which require follow -up. IVC: Intrahepatic inferior vena cava is patent. Miscellaneous: No free abdominal fluid. IMPRESSION: 1. Mildly heterogeneous liver parenchymal echotexture suggestive of metabolic liver disease versus he patic steatosis. No discrete hepatic lesion. 2. Normal-appearing gallbladder. No biliary ductal dilatation. Normal-appearing visualized portion of pancreas. 3. Simple cyst in lower pole right kidney. No hydronephrosis. Reviewed by: Alex Sierra MD on 12/15/2023 9:29 PM PDT Approved by: Alex Sierra MD on 12/15/2023 9:29 PM PDT Station ID: [id number]
== END 2023-12-15 07:46 | disposition home or self-care (01) ==
LOC: DI 07:45
PROVIDERS: ATTEND Physician Assistant
DX: R74.8 Abnormal levels of other serum enzymes (principal); R74.01 Elevation of levels of liver transaminase levels; N28.1 Cyst of kidney, acquired